=== PATIENT | female | born 1970 | race Caucasian/White ===

== ENCOUNTER → 2016-11-02 | Outpatient (REF) | payer BC | LOC: M LAB REF 16:29 | PROVIDERS: ATTEND Nurse Practitioner Adult Health | DX: E03.9 Hypothyroidism, unspecified (principal) ==

== ENCOUNTER → 2017-09-07 | Outpatient (REF) | payer BC ==
[2017-09-07 20:42] LABS: RHEUMATOID FACTOR QUANT < 10.0 IU/ML (0-15.0)
[2017-09-10 00:08] LABS: ANTINUCLEAR ANTIBODIES DIRECT Negative (Negative); Lyme Disease IgG/IgM Antibodie <0.91 ISR (0.00-0.90); Lyme Disease IgM Ab Quantitati <0.80 index (0.00-0.79)
== END ==
LOC: M LAB REF 19:58
DX: M79.1 Myalgia (principal); R53.83 Other fatigue

== ENCOUNTER → 2020-02-04 | Outpatient (REF) | payer BC | LOC: M LAB REF 16:14 | PROVIDERS: ATTEND Registered Nurse | DX: M10.9 Gout, unspecified (principal) ==

== ENCOUNTER → 2020-02-28 | Outpatient (CLI) | payer BC ==
[~2020-02-28] MED LIST: METHACHOLINE KIT (J7674) INH ONE
--- NOTE | 2020-05-22 07:12 | METHCHAL ---
DATE: 02/28/2020 ORDERED BY: Chevy Sin QUALITY: Study of excellent technical quality. PROCEDURE: Under protocol, methacholine was administered. At a dose of 10 mg or 63.875 CDUs, a 34% decline of the FEV1 was noted. PC of 3.82 is significant. Flow rates did return to baseline post-bronchodilator administration. IMPRESSION: Positive methacholine challenge study. MTDD
== END ==
LOC: M CARPUL 11:34
PROVIDERS: ATTEND Physician Assistant
DX: R06.00 Dyspnea, unspecified (principal)

== ENCOUNTER → 2020-05-02 | Outpatient (CLI) | payer BC ==
--- NOTE | 2020-05-07 14:32 | SLEEPCENT ---
DATE: 05/02/2020 ORDERED BY: Chevy Sin Nocturnal polysomnography was performed for evaluation of sleep physiology in this patient with a history of excessive somnolence and nonrestorative sleep. There was 8 hours and 48 minutes of data reviewed. There was 393.5 minutes of sleep identified. Sleep latency was prolonged at 78.5 minutes. REM latency was prolonged at 137 minutes. Sleep architecture was fragmented, but there were two REM cycles noted. Overall sleep efficiency was 75.2%. The electrocardiogram showed a sinus rhythm with an average heart rate of 60 beats per minute. EEG showed normal waveforms for wake and sleep. There were 111 respiratory events identified of 10 seconds in duration or greater for an apnea-hypopnea index of 16.9. The events were primarily obstructive, not exclusive to sleep stage or body posture. Arousals from respiratory events occurred 13 times per hour, and oxygen desaturations were seen below 90%. Remaining measures of sleep physiology were reasonably normal. IMPRESSION: Obstructive sleep apnea syndrome (G47.33). Apnea-hypopnea index 16.9. RECOMMENDATION: The patient should be encouraged to return to the sleep disorder center for pressure therapy. In the interim, alcohol and sedative avoidance should be practiced and caution exercised during the operation of motor vehicles. MTDD
== END ==
LOC: M SLEEP 20:00
PROVIDERS: ATTEND Physician Assistant
DX: G47.33 Obstructive sleep apnea (adult) (pediatric) (principal)

== ENCOUNTER → 2020-06-13 | Outpatient (CLI) | payer BC ==
--- NOTE | 2020-06-18 07:11 | SLEEPCENT ---
DATE: 06/13/2020 ORDERED BY: DEE Fernández Nocturnal polysomnography was performed for the titration of pressure therapy in this patient with obstructive sleep apnea syndrome, apnea-hypopnea index 16.9. For testing, the patient was fit with a [employer]Med Airfit F30 full face mask of small size, 4 cm of water pressure were applied to the circuit and the lights were extinguished. Eight hours and seven minutes of data were reviewed. There were 344.5 minutes of sleep identified. Sleep latency was mildly prolonged at 114 minutes. REM latency was prolonged at 197 minutes. Sleep architecture improved on optimal pressure therapy. Overall sleep efficiency was 71.5%. The electrocardiogram showed a sinus rhythm with an average heart rate of 56 beats per minute. EEG showed normal waveforms for wake and sleep. Respiratory events were fully palliated with CPAP at a pressure of 12 and remaining measures of sleep physiology were normal. IMPRESSION: Obstructive sleep apnea syndrome (G47.33). RECOMMENDATION: Nightly use of pressure therapy 12 cm of water. MTDD
== END ==
LOC: M SLEEP 20:00
PROVIDERS: ATTEND Physician Assistant
DX: G47.33 Obstructive sleep apnea (adult) (pediatric) (principal)

== ENCOUNTER → 2020-06-26 | Outpatient (CLI) | payer BC | LOC: M LABSMTC 12:52 | PROVIDERS: ATTEND Family Medicine | DX: Z20.828 Contact with and (suspected) exposure to other viral communicable diseases (principal) ==

== ENCOUNTER → 2022-08-04 | Outpatient (CLI) | payer OTHER | LOC: M RAD 12:57 | PROVIDERS: ATTEND Physician Assistant | DX: Z12.2 Encounter for screening for malignant neoplasm of respiratory organs (principal); Z87.891 Personal history of nicotine dependence ==

== ENCOUNTER → 2023-07-27 | Outpatient (REF) | payer OTHER, BC ==
[2023-07-27 17:33] LABS: HEMATOCRIT 39.5 % (36.0-47.0)
[2023-07-27 18:00] LABS: PERCENT SATURATION 12.2 % (13.2-45.0)
[2023-07-27 18:03] LABS: FERRITIN 25.4 NG/ML (7.3-270.7)
== END ==
LOC: M LAB REF 16:36
PROVIDERS: ATTEND Nurse Practitioner Adult Health
DX: D50.9 Iron deficiency anemia, unspecified (principal)

== ENCOUNTER → 2023-08-05 | Outpatient (CLI) | payer BC, OTHER | LOC: M RAD 13:22 | PROVIDERS: ATTEND Internal Medicine Pulmonary Disease | DX: Z12.2 Encounter for screening for malignant neoplasm of respiratory organs (principal); Z87.891 Personal history of nicotine dependence ==

== ENCOUNTER → 2024-10-02 | Outpatient (CLI) | payer BC, OTHER ==
[~2024-10-02] MED LIST changes: -METHACHOLINE KIT (J7674) INH ONE; +propofoL 200 MG/20 ML VIAL As Ordered ONE
== END ==
LOC: M RAD 14:32
PROVIDERS: ATTEND Physician Assistant
DX: Z87.891 Personal history of nicotine dependence (principal)